=== PATIENT | female | born 1985 | race Caucasian/White ===

== ENCOUNTER → 2016-08-12 | Outpatient (CLI) | payer BC ==
[2016-08-12 13:03] LABS: EKG EKG PERFORMED
[2016-08-12 13:19] LABS: ALT 31 U/L (9-52); AST 27 U/L (14-36); Alkaline Phosphatase 64 U/L (38-126); Anion Gap 12 mmol/L; Blood Urea Nitrogen 17 mg/dL (7-17); Calcium 9.7 mg/dL (8.4-10.2); Carbon Dioxide 29 mmol/L (22-30); Chloride 101 mmol/L (98-107); Glucose 77 mg/dL (74-99); Non-African American GFR(MDRD) >60 (>60 ml/min/1.73 sqM); Potassium 4.1 mmol/L (3.5-5.1); Sodium 142 mmol/L (137-145); Total Bilirubin 0.7 mg/dL (0.2-1.3); Total Protein 7.6 g/dL (6.3-8.2)
[2016-08-12 13:22] LABS: Basophils % (A) 1 %; CH 29.9; CHCM 34.3; Eosinophils # (A) 0.1 k/uL (0-0.7); Eosinophils % (A) 1 %; HCT 39.4 % (34.0-46.0); HDW 2.73; HGB 13.3 gm/dL (11.4-16.0); Luc # (Auto) 0.11; Luc % (Auto) 2; Lymphocytes # (A) 1.9 k/uL (1.0-4.8); Lymphocytes % (A) 42 %; MCH 29.6 pg (25.0-35.0); MCHC 33.7 g/dL (31.0-37.0); MCV 87.7 fL (80.0-100.0); Mean Platelet Volume 8.3; Monocytes # (A) 0.3 k/uL (0-1.0); Monocytes % (A) 6 %; Neutrophils # (A) 2.2 k/uL (1.3-7.7); Neutrophils % (A) 48 %; RDW 12.6 % (11.5-15.5); WBC 4.6 k/uL (3.8-10.6); WBC (Perox) 4.83
== END | disposition home or self-care (01) ==
LOC: LABPAT 12:31
PROVIDERS: ATTEND Surgery
DX: Z01.812 Encounter for preprocedural laboratory examination (principal)
CPT/HCPCS: 80053; 85025; 93005

== ENCOUNTER → 2016-08-12 | Outpatient (CLI) | payer BC ==
--- NOTE | 2016-08-12 13:21 | FL ---
GASTRIC BANDING ESOPHAGRAM CLINICAL HISTORY: Pain COMPARISON: 02/09/2010 Gastric banding esophagram was performed. The patient ingested thin liquid barium. There is mild-to- moderate delay in esophagogastric transit with narrowing identified at the site of band placement. Th e gastric banding device appears to be rotated however it is unchanged in appearance since the prior examination. No definite prolapse is identified. IMPRESSION: Delayed esophagogastric transit mild to moderate in degree with narrowing at the site of the gastric band placement.
[2016-08-12 13:56] VITALS: BP 110/79; PULSE 56; RESP 14; TEMP 98.2; BMI 26.0
--- NOTE | 2016-08-12 14:17 | P.HPBAR ---
Bariatric H&P - History & Physicial H&P Date: 08/12/16 History & Physicial: Visit/CC: band f/u Patient initial contact: Initial weight: 122.47 kg Initial weight in pounds: 270.00 Height: 5 ft 7 in Initial BMI: 42.3 Last weight: Current weight: 75.523 kg Current weight in pounds: 166.50 Current BMI: 26.0 [place] body weight (based on NIH guidelines): 61.235 kg Excess body weight loss: 76.6% The patient is a 31 year-old F who presents for Bariatric Assessment. The patient states that she has had dysphagia for approximately one week. I'm not seen her for 3 or 4 years. Patient states that she had has had no issues last 3 or 4 years. Over laceration also dysphagia. She wasn't sure if it was related to her earlobe bowel syndrome. The patient's had an esophagram performed which shows some stenosis near the LAP-BAND. There is also some rotation of the LAP-BAND without any obvious prolapse. Past Medical History Past Medical History: No Reported History History of Any Multi-Drug Resistant Organisms: None Reported Past Surgical History: Appendectomy, Bariatric Surgery, Hysterectomy, Orthopedic Surgery Additional Past Surgical History / Comment(s): 200-2003 4 laporoscoopic surgeries to Left knee d/t sports injury, 2000 Right ovarian cyst, 2001 Right oopherectomy, 2006 anal fissure repair, lap band placed 2009, 2012 appendectomy *& hysterectomy Past Anesthesia/Blood Transfusion Reactions: Postoperative Nausea & Vomiting ( PONV) Additional Past Anesthesia/Blood Transfusion Reaction / Comm: no reported blood transfusions. Smoking Status: Never smoker Past Alcohol Use History: Rare Past Drug Use History: None Reported - Past Family History Mother Family Medical History: Osteoarthritis (OA) Surgical - Exam Vital Signs Temp Pulse Resp BP 98.2 F 56 L 14 110/79 08/12/16 13:46 08/12/16 13:46 08/12/16 13:46 08/12/16 13:46 - General well developed - Abdomen Abdomen: soft, non tender Bariatric Assessment & Plan Plan: The patient LAP-BAND was empty. She had 7.5 mL removed from her band. She was ill drink water without difficulty. She will follow-up in 2 weeks. Bariatric Checklist Checklist: Plan: Checklist: EGD: 1. Hiatal hernia: 2. H. Pylori: HgbA1c: Vitamin D: Smoking: Never smoker Primary care physician referral: Ivan ([facility]) Psychiatry clearance: Cardiology clearance: Sleep study: Diet journal: VTE risk score: VTE risk level: Rehab needs at discharge:
== END | disposition home or self-care (01) ==
LOC: RADFLWHC 12:27 → BARWHC3 13:20
PROVIDERS: ATTEND Surgery
DX: Z48.815 Encounter for surgical aftercare following surgery on the digestive system (principal); R13.10 Dysphagia, unspecified; Z68.26 Body mass index [BMI] 26.0-26.9, adult; Z98.84 Bariatric surgery status; K22.2 Esophageal obstruction
CPT/HCPCS: 74220; 99203

== ENCOUNTER → 2016-08-19 | Outpatient (CLI) | payer BC ==
[2016-08-19 15:49] VITALS: BP 125/82; PULSE 57; TEMP 98.4; BMI 25.7
--- NOTE | 2016-08-19 16:09 | P.HPBAR ---
Bariatric H&P - History & Physicial H&P Date: 08/19/16 History & Physicial: Visit/CC: follow up visit Patient initial contact: Initial weight: 122.47 kg Initial weight in pounds: 270.00 Height: 5 ft 7 in Initial BMI: 42.3 Last weight: Current weight: 74.344 kg Current weight in pounds: 163.90 Current BMI: 25.7 [place] body weight (based on NIH guidelines): 61.235 kg Excess body weight loss: 78.5% The patient is a 31 year-old F who presents for Bariatric Assessment. The patient presents today due to GERD and dysphagia. Patient had complaints of dysphagia last week her LAP-BAND was emptied. Patient had an esophagram performed which showed possible prolapse of her LAP-BAND. Patient's symptoms have persisted after her LAP-BAND was emptied. She states she's had trouble solid food she has tolerated clear liquids however. Past Medical History Past Medical History: No Reported History History of Any Multi-Drug Resistant Organisms: None Reported Past Surgical History: Appendectomy, Bariatric Surgery, Hysterectomy, Orthopedic Surgery Additional Past Surgical History / Comment(s): 200-2003 4 laporoscoopic surgeries to Left knee d/t sports injury, 2000 Right ovarian cyst, 2001 Right oopherectomy, 2006 anal fissure repair, lap band placed 2009, 2012 appendectomy *& hysterectomy Past Anesthesia/Blood Transfusion Reactions: Postoperative Nausea & Vomiting ( PONV) Additional Past Anesthesia/Blood Transfusion Reaction / Comm: no reported blood transfusions. Smoking Status: Never smoker Past Alcohol Use History: Rare Past Drug Use History: None Reported - Past Family History Mother Family Medical History: Osteoarthritis (OA) Surgical - Exam Vital Signs Temp Pulse BP 98.4 F 57 L 125/82 08/19/16 15:42 08/19/16 15:42 08/19/16 15:42 - General well developed, no distress - Eyes PERRL - ENT normal pinna, normal mucosa - Neck no masses - Respiratory normal expansion - Cardiovascular Rhythm: regular - Abdomen Abdomen: soft, non tender Bariatric Assessment & Plan Plan: Gastric prolapse with dysphagia and GERD. The patient will need to have her LAP -BAND removed. I discussed with that she will potentially have weight gain after this is done. Patient wishes to have a gastric sleeve performed. I discussed through that this will need to get preauthorized. I told her that if her dysphagia and reflux symptoms worsen that she will need to have her LAP- BAND removed immediately. Patient's is tentatively scheduled for removal LAP- BAND on August 23. Bariatric Checklist Checklist: Plan: Checklist: EGD: 1. Hiatal hernia: 2. H. Pylori: HgbA1c: Vitamin D: Smoking: Never smoker Primary care physician referral: Ivan ([facility]) Psychiatry clearance: Cardiology clearance: Sleep study: Diet journal: VTE risk score: VTE risk level: Rehab needs at discharge:
== END | disposition home or self-care (01) ==
LOC: BARWHC3 15:02
PROVIDERS: ATTEND Surgery
DX: K31.89 Other diseases of stomach and duodenum (principal); R13.10 Dysphagia, unspecified; K21.9 Gastro-esophageal reflux disease without esophagitis; Z98.84 Bariatric surgery status
CPT/HCPCS: 99211

== ENCOUNTER 2016-08-23 10:15 | Day surgery (SDC) | payer BC ==
[2016-08-21 10:32] VITALS: BMI 25.3
[~2016-08-23 10:15] MED LIST: ACETAMINOPHEN TAB 500 MG TAB PO ONE; DEXAMETHASONE SOD PHOSPHATE 10 MG/ML 1 ML VIAL IV ONE; ENOXAPARIN 40 MG/0.4 ML SYRINGE SQ ONE; LACTATED RINGERS 1,000 ML IV SCH; LIDOCAINE 1% 20 ML VIAL (10MG/ML) FOR IV START INTRADERMA PRN; MIDAZOLAM 2 MG/2 ML VIAL IV PRN; SCOPOLAMINE 1.5MG/72HR PATCH TRANSDERM ONE; ceFAZolin 2 GM in SODIUM CHLORIDE 0.9% 100 ML IVPB ONE
[2016-08-23] MEDS: ONDANSETRON 4 MG/2 ML VIAL IVP ONE ×2 (10:49→13:37)
--- NOTE | 2016-08-23 11:19 | P.GSHP ---
History of Present Illness H&P Date: 08/23/16 Chief Complaint: Dysphagia secondary gastric prolapse This is a 31-year-old female who presents today for laparoscopic removal of LAP- BAND system. Patient has had dysphagia related to a gastric prolapse. Her LAP- BAND was emptied over a week ago. Patient still has complaints of dysphagia. Patient is requesting have her LAP-BAND removed. She'll attempt to obtain insurance authorization for release gastric sleeve postoperatively. The patient has persistent dysphagia with her LAP-BAND emptied which has required her to have the band removed today. Past Medical History Past Medical History: No Reported History Additional Past Medical History / Comment(s): has gastric prolapse, IBS History of Any Multi-Drug Resistant Organisms: None Reported Past Surgical History: Appendectomy, Bariatric Surgery, Hysterectomy, Orthopedic Surgery Additional Past Surgical History / Comment(s): 4 arthroscopic surgeries to Left knee d/t sports injury, 2000 Right ovarian cyst, 2001 Right oopherectomy, 2006 anal fissure repair, lap band placed 2009 Past Anesthesia/Blood Transfusion Reactions: Motion Sickness, Postoperative Nausea & Vomiting (PONV) Additional Past Anesthesia/Blood Transfusion Reaction / Comment(s): no reported blood transfusions. Past Psychological History: Anxiety Smoking Status: Never smoker Past Alcohol Use History: Rare Past Drug Use History: None Reported - Past Family History Mother Family Medical History: Osteoarthritis (OA) Medications and Allergies Home Medications Medication Instructions Recorded Confirmed Type HYDROcodone/APAP 5-325MG [[place] 1 - 2 tab PO Q6HR PRN 08/21/16 08/23/16 History 5-325] Allergies Allergy/AdvReac Type Severity Reaction Status Date / Time nickel Allergy Rash/Hives Verified 08/21/16 10:27 prochlorperazine AdvReac Hallucinati Verified 08/21/16 09:49 [From Compazine] ons bee venom Allergy Anaphylaxis Uncoded 08/21/16 09:49 Surgical - Exam Vital Signs Temp Pulse Resp BP Pulse Ox 98 F 63 16 123/86 100 08/23/16 10:31 08/23/16 10:31 08/23/16 10:31 08/23/16 10:31 08/23/16 10:31 - General well developed, well nourished - Eyes PERRL - ENT normal pinna - Neck no masses - Respiratory normal expansion - Cardiovascular Rhythm: regular - Abdomen Abdomen: soft, non tender Assessment and Plan Plan: Chronic dysphagia secondary to gastric prolapse. Patient will undergo laparoscopic removal of LAP-BAND system today.
[2016-08-23] MEDS ORDERED: ONDANSETRON 4 MG/2 ML VIAL ONE (11:39)
[2016-08-23] MEDS ORDERED: KETOROLAC 30 MG/ML 1 ML VIAL ONE (11:39)
[2016-08-23] MEDS ORDERED: NEOSTIGMINE 1 MG/ML 10 ML VIAL ONE (11:39)
[2016-08-23] MEDS ORDERED: MIDAZOLAM 2 MG/2 ML VIAL ONE (11:39)
[2016-08-23] MEDS ORDERED: ePHEDrine 50 MG/ML 1 ML AMP ONE (11:39)
[2016-08-23] MEDS ORDERED: ROCURONIUM BROMIDE 10 MG/ML 10 ML VIAL IV ONE (11:39)
[2016-08-23] MEDS ORDERED: GLYCOPYRROLATE 0.2 MG/ML 2 ML VIAL ONE (11:39)
[2016-08-23] MEDS ORDERED: fentaNYL (PF) 50 MCG/ML 2 ML AMP ONE (11:39)
[2016-08-23] MEDS ORDERED: PROPOFOL 10 MG/ML 20 ML VIAL IV ONE (11:39)
[2016-08-23] MEDS ORDERED: BUPIVACAIN-EPI 0.25%-1:200,000 30 ML VIAL SQ ONE (12:09)
[2016-08-23] MEDS ORDERED: LACTATED RINGERS 1,000 ML IV ONE (12:20)
--- NOTE | 2016-08-23 12:53 | P.OP ---
Date of Procedure: 08/23/16 Preoperative Diagnosis: Dysphagia Gastric prolapse of LAP-BAND Postoperative Diagnosis: Dysphagia Gastric prolapse of LAP-BAND Procedure(s) Performed: Laparoscopic lysis of adhesion Laparoscopic removal of LAP-BAND and port Anesthesia: NIKKI Surgeon: Rafael Washington Estimated Blood Loss (ml): 10 Pathology: none sent Condition: stable Disposition: PACU Description of Procedure: The patient's placed on the operating room table in the supine position. She received general anesthesia. She was then placed in dorsal lithotomy position. Her abdomen was prepped and draped usual sterile fashion. The skin incision sites were anesthetized 1% local Xylocaine. Using 11 blade the skin was incised Regi port site and using blunt and sharp dissection and cautery the LAP-BAND port was dissected free from some taste tissues. Next using a 5 mm trocar under direct visualization. His entered and the abdomen was was then insufflated. After adequate insufflation the laparoscope placed back in [place] cavity. Next a 5 mm trocar the right lateral and left lateral position. The initial 5 mm trocar was exchanged for a 15 mm trocar. And then another 5 mm trocar was placed in the left. Local area. There were adhesions holding the liver up. The adhesions to the anterior abdominal wall were then lysed using sharp dissection and electrocautery and the Harmonic scissors. The LAP-BAND tubing was dissected out of the omentum. This was performed using left cautery. The lap band buckle was then dissected free using left cautery the LAP -BAND buckle was then cut and then removed from the patient. Regi device was then withdrawn from around stomach. There is known to any injury to the stomach. The LAP-BAND device and brought out through the 15 mm trocar site. The abdomen was irrigated there is no bleeding seen. The trochars withdrawn. The 15 mm trocar site was closed with 0 Vicryl suture. The skin was closed interrupted 3-0 Monocryl suture. Dermabond was applied. Patient top she will was sent to recovery in stable condition.
[2016-08-23 13:06] VITALS: TEMP 97.3
[2016-08-23 13:19] VITALS: RESP 16
[2016-08-23] MEDS: HYDROmorphone 1 MG/ML 1 ML SYRINGE IVP PRN ×2 (13:25→13:37)
[2016-08-23] MEDS ORDERED: HYDROcodone/APAP 7.5-325MG 1 EACH TAB PO ONE (14:54)
[2016-08-23 15:26] VITALS: BP 101/76; PULSE 76
== END 2016-08-23 15:37 | disposition home or self-care (01) ==
LOC: OR 10:15
PROVIDERS: ATTEND Surgery
DX: Z45.89 Encounter for adjustment and management of other implanted devices (principal); K66.0 Peritoneal adhesions (postprocedural) (postinfection); R13.19 Other dysphagia; K31.89 Other diseases of stomach and duodenum; Z91.030 Bee allergy status; Z88.8 Allergy status to other drugs, medicaments and biological substances; Z91.09 Other allergy status, other than to drugs and biological substances
CPT/HCPCS: 43774; J2250; J1100; J2710; J0690; J2405; J1650; J3010; J1885; J1170; J2704

== ENCOUNTER → 2016-09-09 | Outpatient (CLI) | payer BC ==
[2016-09-09 16:13] VITALS: BP 111/66; PULSE 58; TEMP 97.9
--- NOTE | 2016-09-09 16:53 | P.HPBAR ---
Bariatric H&P - History & Physicial H&P Date: 09/09/16 History & Physicial: Visit/CC: post op visit Patient initial contact: Initial weight: 122.47 kg Initial weight in pounds: 270.00 Height: Initial BMI: Last weight: Current weight: Current weight in pounds: Current BMI: [place] body weight (based on NIH guidelines): Excess body weight loss: The patient is a 31 year-old F who presents for Bariatric Assessment. Patient presents today for follow-up. She had her LAP-BAND removed in 2 weeks ago due to dysphagia and gastric prolapse. Patient is doing fairly well. She has some complaints of swelling and discomfort at her old LAP-BAND port site. Past Medical History Past Medical History: No Reported History Additional Past Medical History / Comment(s): has gastric prolapse, IBS History of Any Multi-Drug Resistant Organisms: None Reported Past Surgical History: Appendectomy, Bariatric Surgery, Hysterectomy, Orthopedic Surgery Additional Past Surgical History / Comment(s): 4 arthroscopic surgeries to Left knee d/t sports injury, 2000 Right ovarian cyst, 2001 Right oopherectomy, 2006 anal fissure repair, lap band placed 2009 Past Anesthesia/Blood Transfusion Reactions: Motion Sickness, Postoperative Nausea & Vomiting (PONV) Additional Past Anesthesia/Blood Transfusion Reaction / Comm: no reported blood transfusions. Past Psychological History: Anxiety Smoking Status: Never smoker Past Alcohol Use History: Rare Past Drug Use History: None Reported - Past Family History Mother Family Medical History: Osteoarthritis (OA) Surgical - Exam Vital Signs Temp Pulse BP 97.9 F 58 L 111/66 09/09/16 16:05 09/09/16 16:05 09/09/16 16:05 - General well developed, no distress - Eyes PERRL - ENT normal pinna - Respiratory normal expansion - Abdomen There is evidence of a small hematoma at her LAP-BAND port site Abdomen: soft Bariatric Assessment & Plan Plan: Status post removal of LAP-BAND system. Patient had her LAP-BAND port site aspirated. A small amount of bloody fluid was removed. She'll follow-up in 8 weeks for recheck. Bariatric Checklist Checklist: Plan: Checklist: EGD: 1. Hiatal hernia: 2. H. Pylori: HgbA1c: Vitamin D: Smoking: Never smoker Primary care physician referral: Ivan ([facility]) Psychiatry clearance: Cardiology clearance: Sleep study: Diet journal: VTE risk score: VTE risk level: Rehab needs at discharge:
== END | disposition home or self-care (01) ==
LOC: BARWHC3 14:48
PROVIDERS: ATTEND Surgery
DX: Z48.815 Encounter for surgical aftercare following surgery on the digestive system (principal); Z98.84 Bariatric surgery status
CPT/HCPCS: 99211

== ENCOUNTER → 2016-10-28 | Outpatient (CLI) | payer BC ==
[2016-10-28 13:21] VITALS: BMI 29.5
[2016-10-28 14:26] VITALS: BP 110/70; PULSE 88; TEMP 98.2
--- NOTE | 2016-10-28 17:01 | P.HPBAR ---
Bariatric H&P - History & Physicial H&P Date: 10/28/16 History & Physicial: Visit/CC: preop visit Patient initial contact: Initial weight: 122.47 kg Initial weight in pounds: 270.00 Height: 5 ft 7 in Initial BMI: 42.3 Last weight: Current weight: 85.457 kg Current weight in pounds: 188.40 Current BMI: 29.5 [place] body weight (based on NIH guidelines): 61.235 kg Excess body weight loss: 60.4% The patient is a 31 year-old F who presents for Bariatric Assessment. Patient presents for follow-up. She had her LAP-BAND removed several weeks ago due to a gastric prolapse. Patient requesting that she wished to have her LAP-BAND replaced. Patient's gained weight since her band was removed. Past Medical History Past Medical History: No Reported History Additional Past Medical History / Comment(s): has gastric prolapse, IBS History of Any Multi-Drug Resistant Organisms: None Reported Past Surgical History: Appendectomy, Bariatric Surgery, Hysterectomy, Orthopedic Surgery Additional Past Surgical History / Comment(s): 4 arthroscopic surgeries to Left knee d/t sports injury, 2000 Right ovarian cyst, 2001 Right oopherectomy, 2006 anal fissure repair, lap band placed 2009 Past Anesthesia/Blood Transfusion Reactions: Motion Sickness, Postoperative Nausea & Vomiting (PONV) Additional Past Anesthesia/Blood Transfusion Reaction / Comm: no reported blood transfusions. Past Psychological History: Anxiety Smoking Status: Never smoker Past Alcohol Use History: Rare Past Drug Use History: None Reported - Past Family History Mother Family Medical History: Osteoarthritis (OA) Surgical - Exam Vital Signs Temp Pulse BP 98.2 F 88 110/70 10/28/16 14:20 10/28/16 14:20 10/28/16 14:20 - General well developed, no distress - Eyes PERRL - ENT normal pinna, normal mucosa - Neck no masses - Cardiovascular Rhythm: regular - Abdomen Abdomen: soft, non tender Bariatric Assessment & Plan Plan: We will attempt to obtain insurance authorization for her LAP-BAND replacement. I went over the risks benefits of procedure with the patient. The patient is GERD symptoms are improved since her gastric prolapse was repaired with band removal. Bariatric Checklist Checklist: Plan: Checklist: EGD: 1. Hiatal hernia: 2. H. Pylori: HgbA1c: Vitamin D: Smoking: Never smoker Primary care physician referral: Ivan ([facility]) Psychiatry clearance: Cardiology clearance: Sleep study: Diet journal: VTE risk score: VTE risk level: Rehab needs at discharge:
== END | disposition home or self-care (01) ==
LOC: BARWHC3 09:03
PROVIDERS: ATTEND Surgery
DX: Z01.818 Encounter for other preprocedural examination (principal); Z71.3 Dietary counseling and surveillance; Z98.84 Bariatric surgery status; K21.9 Gastro-esophageal reflux disease without esophagitis; Z68.29 Body mass index [BMI] 29.0-29.9, adult
CPT/HCPCS: 97804; 99211

== ENCOUNTER 2016-11-15 13:00 | Inpatient (IN) | payer BC ==
[2016-11-22 12:01] VITALS: BMI 30.7
[2016-11-27] MEDS ORDERED: ceFAZolin 2 GM in SODIUM CHLORIDE 0.9% 100 ML IVPB ONE (05:00)
[2016-11-27] MEDS ORDERED: HYDROmorphone 1 MG/ML 1 ML SYRINGE IVP PRN (06:00)
[2016-11-27] MEDS ORDERED: MIDAZOLAM 2 MG/2 ML VIAL IV PRN (06:00)
[2016-11-27] MEDS ORDERED: DEXAMETHASONE SOD PHOSPHATE 10 MG/ML 1 ML VIAL IV ONE (06:00)
[2016-11-27] MEDS ORDERED: ONDANSETRON 4 MG/2 ML VIAL IVP ONE (06:00)
[2016-11-27] MEDS ORDERED: SCOPOLAMINE 1.5MG/72HR PATCH TRANSDERM ONE (06:00)
--- NOTE | 2016-11-27 13:15 | P.GSHP ---
History of Present Illness H&P Date: 11/27/16 Chief Complaint: History of morbid obesity, gastric prolapse This is a 31-year-old female who presents today for laparoscopic replacement of LAP-BAND system. The patient had her LAP-BAND system removed in August due to a gastric prolapse. Patient presents today for her LAP-BAND placement of LAP- BAND. She is aware the risks of surgery including injury to the stomach liver and spleen also a risk of conversion to the open procedure. - Constitutional Constitutional: Reports as per HPI Past Medical History Past Medical History: GERD/Reflux, Thyroid Disorder Additional Past Medical History / Comment(s): HX Gastric Prolapse W/ PREV LAB BAND, OCC GERD. HX KIDNEY STONES. IBS. LOW HEART RATE, HEREDITARY. PARAG 'S, GOITER, NODULES, NO TX. VARICOSE VEINS. History of Any Multi-Drug Resistant Organisms: None Reported Past Surgical History: Appendectomy, Bariatric Surgery, Hysterectomy, Orthopedic Surgery Additional Past Surgical History / Comment(s): 4 arthroscopic surgeries to Left knee d/t sports injury, 2000 Right ovarian cyst, 2001 Right oopherectomy. D&C FOR MISSED AB. 2006 anal fissure repair, lap band placed 2009 - REMOVED 08/23/16 Past Anesthesia/Blood Transfusion Reactions: Family History of Problems w/ Anesthesia, Motion Sickness, Postoperative Nausea & Vomiting (PONV) Additional Past Anesthesia/Blood Transfusion Reaction / Comment(s): No reported blood transfusions. FAMIL HX OF PONV, SLOW TO AWAKEN. Smoking Status: Never smoker - Past Family History Mother Family Medical History: Osteoarthritis (OA) Medications and Allergies Home Medications Medication Instructions Recorded Confirmed Type Multivitamins, Thera [Multivitamin 2 tab PO DAILY 11/22/16 11/22/16 History (formulary)] Allergies Allergy/AdvReac Type Severity Reaction Status Date / Time nickel Allergy Rash/Hives Verified 11/27/16 13:06 prochlorperazine AdvReac Hallucinati Verified 11/27/16 13:06 [From Compazine] ons bee venom Allergy Anaphylaxis Uncoded 11/22/16 11:35 Surgical - Exam - General well developed, no distress - Eyes PERRL - ENT normal pinna - Neck no masses - Respiratory normal expansion - Cardiovascular Rhythm: regular - Abdomen Abdomen: soft, non tender Assessment and Plan Plan: History of obesity with removal of LAP-BAND secondary to gastric prolapse. Patient will undergo replacement of LAP-BAND system today.
[2016-11-27] MEDS ORDERED: LIDOCAINE 1% 20 ML VIAL (10MG/ML) FOR IV START INTRADERMA ONE (13:20)
[2016-11-27] MEDS: LACTATED RINGERS 1,000 ML IV SCH (13:20)
[2016-11-27] MEDS ORDERED: HEPARIN SODIUM,PORCINE 5,000 UNIT/ML 1 ML VIAL SQ ONE (13:41)
[2016-11-27] MEDS ORDERED: GLYCOPYRROLATE 0.2 MG/ML 2 ML VIAL ONE (14:25)
[2016-11-27] MEDS ORDERED: PROPOFOL 10 MG/ML 20 ML VIAL IV ONE (14:25)
[2016-11-27] MEDS ORDERED: NEOSTIGMINE 1 MG/ML 10 ML VIAL ONE (14:25)
[2016-11-27] MEDS ORDERED: MIDAZOLAM 2 MG/2 ML VIAL ONE (14:25)
[2016-11-27] MEDS ORDERED: SUCCINYLCHOLINE CHLORIDE 100 MG/5 ML SYR IV ONE (14:25)
[2016-11-27] MEDS ORDERED: LABETALOL 5 MG/ML VIAL MDV ONE (14:25)
[2016-11-27] MEDS ORDERED: fentaNYL (PF) 50 MCG/ML 2 ML AMP ONE (14:25)
[2016-11-27] MEDS ORDERED: ROCURONIUM BROMIDE 10 MG/ML 10 ML VIAL IV ONE (14:25)
[2016-11-27] MEDS ORDERED: LIDOCAINE 1%-EPI 1:100,000 20 ML VIAL SQ ONE (14:53)
[2016-11-27] MEDS ORDERED: LACTATED RINGERS 1,000 ML IV ONE (15:59)
[2016-11-27] MEDS ORDERED: ONDANSETRON 4 MG/2 ML VIAL IVP PRN (16:51)
[2016-11-27] MEDS ORDERED: NALOXONE 0.4 MG/ML 1 ML VIAL IV PRN (16:51)
--- NOTE | 2016-11-27 16:51 | P.OP ---
Date of Procedure: 11/27/16 Preoperative Diagnosis: History of gastric prolapse Morbid obesity Postoperative Diagnosis: History of gastric prolapse Morbid obesity Procedure(s) Performed: Laparoscopic lysis of adhesions Laparoscopic placement of LAP-BAND system Implants: Anesthesia: ELISABETHA Surgeon: Rafael Washington Estimated Blood Loss (ml): 100 Pathology: none sent Condition: stable Disposition: PACU Indications for Procedure: Operative Findings: Description of Procedure: The patient's placed in the operating table in the supine position. She received general anesthesia. She was then placed in dorsal lithotomy position. Her abdomen was prepped and draped in usual sterile fashion. The skin was incised in the left periumbilical area and then using a 5 mm optical trocar under direct visitation the perineal cavity is entered. The abdomen was then insufflated and then after adequate insufflation the 5 mm laparoscope was placed back the pleural cavity. Next a 5 mm trocar was placed in the right and left lateral position another fibrillar trocar is placed in the epigastric position and a 15 mm trochars placed in the left epigastric position. The patient was placed in reverse Trendelenburg. The left lateral lobe liver was retracted. There adhesions in the stomach and liver. Approximately 20 was operative time used to lyse adhesions to the stomach liver. The anterior gastric wall plication was taken down with sharp dissection. Care was taken to identify and preserve the gastric wall. This point the stomach was insufflated methylene blue normal saline. There is known to any extravasation. The retro- gastric tunnel was created using a blunt grasper and then the band was placed into the peritoneal cavity and then drawn around the stomach. The anterior gastric wall plication was performed using 2-0 Ethibond suture. The stomach was then reinsufflated methylene blue normal saline. There is no evidence of extravasation. This point the abdomen was irrigated. There was no bleeding seen. The trochars withdrawn. The PEG tube for the LAP-BAND port and the brought out through the epigastric port site. The LAP-BAND port sites the PEG tube was secured to the abdominal wall using 2-0 nylon. The skin was closed interrupted 3-0 Monocryl suture. Dermabond was applied. Patient top she will and was sent to recovery in stable condition.
[2016-11-27] MEDS: 0.9% NACL WITH KCL 20 MEQ/L 1,000 ML IV SCH (18:11)
[2016-11-27] MEDS: AMPICILLIN-SULBACTAM 3 GM in SODIUM CHLORIDE 0.9% 100 ML IVPB SCH (18:15)
[2016-11-27] MEDS: KETOROLAC 30 MG/ML 1 ML VIAL IVP SCH (18:16)
[2016-11-27] MEDS: HYDROmorphone 1 MG/ML 1 ML SYRINGE IVP PRN (18:34)
[2016-11-27] MEDS: ALBUTEROL NEBULIZED 2.5 MG/3 ML INHALATION SCH (20:13)
[2016-11-28] MEDS: AMPICILLIN-SULBACTAM 3 GM in SODIUM CHLORIDE 0.9% 100 ML IVPB SCH ×2
[2016-11-28] MEDS: 0.9% NACL WITH KCL 20 MEQ/L 1,000 ML IV SCH ×2 (02:38→08:40)
[2016-11-28] MEDS: HYDROmorphone 1 MG/ML 1 ML SYRINGE IVP PRN ×2 (04:00→10:00)
[2016-11-28 07:19] LABS: Basophils % (A) 0 %; CH 29.2; CHCM 34.4; Eosinophils # (A) 0.1 k/uL (0-0.7); Eosinophils % (A) 1 %; HCT 34.4 % (34.0-46.0); HDW 2.48; HGB 12.2 gm/dL (11.4-16.0); Luc # (Auto) 0.07; Luc % (Auto) 1; Lymphocytes # (A) 1.1 k/uL (1.0-4.8); Lymphocytes % (A) 13 %; MCH 30.1 pg (25.0-35.0); MCHC 35.3 g/dL (31.0-37.0); MCV 85.1 fL (80.0-100.0); Mean Platelet Volume 7.9; Monocytes # (A) 0.5 k/uL (0-1.0); Monocytes % (A) 6 %; Neutrophils # (A) 6.6 k/uL (1.3-7.7); Neutrophils % (A) 80 %; RBC 4.04 m/uL (3.80-5.40); RDW 12.7 % (11.5-15.5); WBC 8.3 k/uL (3.8-10.6); WBC (Perox) 8.42
[2016-11-28 07:31] LABS: Anion Gap 7 mmol/L; Blood Urea Nitrogen 12 mg/dL (7-17); Calcium 8.8 mg/dL (8.4-10.2); Carbon Dioxide 25 mmol/L (22-30); Chloride 107 mmol/L (98-107); Magnesium 1.9 mg/dL (1.6-2.3); Non-African American GFR(MDRD) >60 (>60 ml/min/1.73 sqM); Phosphorous 4.2 mg/dL (2.5-4.5); Potassium 4.3 mmol/L (3.5-5.1); Sodium 139 mmol/L (137-145)
[2016-11-28] MEDS: ALBUTEROL NEBULIZED 2.5 MG/3 ML INHALATION SCH ×2 (07:37→11:23)
[2016-11-28] MEDS ORDERED: 1: MVI, ADULT NO.4 WITH VIT K 10 ML, THIAMINE 100 MG, FOLIC ACID 1 MG, POTASSIUM CHLORID IV SCH ×6 (08:00)
[2016-11-28] MEDS: KETOROLAC 30 MG/ML 1 ML VIAL IVP SCH ×3 (08:20→11:38)
[2016-11-28] MEDS: LACTATED RINGERS 1,000 ML IV SCH (08:38)
[2016-11-28] MEDS ORDERED: ENOXAPARIN 40 MG/0.4 ML SYRINGE SQ SCH (09:00)
[2016-11-28] MEDS ORDERED: PANTOPRAZOLE 40 MG/10 ML VIAL IV SCH (09:00)
[2016-11-28 09:02] VITALS: BP 107/65; PULSE 59; RESP 16; TEMP 97
--- NOTE | 2016-11-28 10:14 | FL ---
SINGLE CONTRAST UPPER GI EXAMINATION: CLINICAL HISTORY: 31-year-old female postop bariatric surgery. Patient with prior lap band placed in 2009 with recent lap band prolapse and removal. Complicated postsurgical course and with some recurr ent weight gain. Patient with replacement surgery on 11/27/2016. TECHNIQUE: Single contrast exam performed with 50 ml Omnipaque 350 contrast. Total fluoroscopy time: 57 seconds. Total images: 29. FINDINGS: Initial fluoroscopic images shows appropriate orientation of the labrum. The patient swallowed oral c ontrast without difficulty or delay. Esophageal peristalsis and motility are within normal limits. Laparoscopic banding device is noted to be in place and is appropriately positioned in proximal stoma ch, just below Gastroesophageal junction. There is good flow of contrast along the course of the la p bed. There is unusual appearance to the contrast stream as it courses along the lateral band with a pparent redundancy and small area of pooling and additional fingerlike extensions which extend both t o the right and left of the lap band. However, on the 5 minute post procedure radiograph, these colle ctions have decreased in size as compared to when the patient was actively drinking. Contrast has pro gressed into the jejunum. No postsurgical free air. IMPRESSION: 1. Appropriate orientation of the lap band. 2. Unusual appearance to the contrast stream as it traverses the lap band. There is suggestion of cici e luminal redundancy both within and around the band. Recommend review of the images. As the extensio ns of contrast have decreased on the 5 minute post procedure radiograph, leak is considered unlikely. Redundant areas of stomach are suggested. Again, clinical correlation recommended. 3. No evidence for obstruction or free air.
[2016-11-28] MEDS ORDERED: SODIUM CHLORIDE 0.9% 1,000 ML BAG ONE (11:38)
--- NOTE | 2016-11-28 12:55 | P.PN ---
Progress Note - Text The patient is feeling well. She has minimal epigastric pain. Her esophagram performed today shows no evidence of leak or obstruction. On exam her vital signs are stable. Her abdomen soft. Incision sites are clean dry and intact. Patiently discharged home today. She'll follow-up in the clinic in 2 weeks.
--- NOTE | 2016-11-28 13:02 | P.DS ---
Providers Date of admission: 11/27/16 12:31 Expected date of discharge: 11/28/16 Attending physician: Rafael Washington Consults: 11/27/16 16:51 Consult Physician Routine Consulting Provider: Jose Carrizales Reason/Comments: Medical management Do you want consulting provider notified?: Yes Primary care physician: Stated None Hospital Course: This is a 31-year-old female who underwent replacement of LAP-BAND system. Please see chart for details. Procedures: Laparoscopic placement of gastric band Patient Condition at Discharge: Good Plan - Discharge Summary New Discharge Prescriptions: New HYDROcodone/APAP [[place] Elixir 7.5-325Mg/15Ml] 15 ml PO Q4HR PRN #300 ml PRN Reason: Pain No Action Multivitamins, Thera [Multivitamin (formulary)] 2 tab PO DAILY Discharge Medication List Multivitamins, Thera [Multivitamin (formulary)] 2 tab PO DAILY 11/22/16 [History ] HYDROcodone/APAP [[place] Elixir 7.5-325Mg/15Ml] 15 ml PO Q4HR PRN #300 ml [Rx] Follow up Appointment(s)/Referral(s): [facility] [NON-STAFF] - 2 Weeks Patient Instructions/Handouts: *Surgery [facility] - Scopalamine Patch Instructions
[2016-11-28] MEDS ORDERED: HYDROcodone/APAP 15 ML SOLUTION PO ONE (13:38)
== END 2016-11-28 14:19 | disposition home or self-care (01) | DRG 621 ==
LOC: 2ORWHC 11-27 12:31 → 3SUR 11-27 16:08
PROVIDERS: ADMIT Surgery; ATTEND Surgery
PROC: 0DN64ZZ Release Stomach, Percutaneous Endoscopic Approach (ICD-10-PCS; principal; 2016-11-27 15:25)
PROC: 0DV64CZ Restriction of Stomach with Extraluminal Device, Percutaneous Endoscopic Approach (ICD-10-PCS; principal; 2016-11-27 15:25)
PROC: 0FN04ZZ Release Liver, Percutaneous Endoscopic Approach (ICD-10-PCS; principal; 2016-11-27 15:25)
DX: E66.01 Morbid (severe) obesity due to excess calories (principal); K21.9 Gastro-esophageal reflux disease without esophagitis; K58.9 Irritable bowel syndrome, unspecified; Z87.442 Personal history of urinary calculi; Z91.030 Bee allergy status; K66.0 Peritoneal adhesions (postprocedural) (postinfection)
CPT/HCPCS: 74240; 80051; 82310; 82565; 83735; 84100; 84520; 85025; 94640; 94760

== ENCOUNTER → 2016-12-16 | Outpatient (CLI) | payer BC ==
[2016-12-16 14:38] VITALS: BP 118/75; PULSE 63; RESP 15; TEMP 98.2; BMI 29.5
--- NOTE | 2016-12-16 16:38 | P.HPBAR ---
Bariatric H&P - History & Physicial H&P Date: 12/16/16 History & Physicial: Visit/CC: band fill Patient initial contact: Initial weight: 122.47 kg Initial weight in pounds: 270.00 Height: 5 ft 7 in Initial BMI: 42.3 Last weight: 188.4 Current weight: 85.502 kg Current weight in pounds: 188.50 Current BMI: 29.5 [place] body weight (based on NIH guidelines): 61.235 kg Excess body weight loss: 60.3% The patient is a 31 year-old F who presents for Bariatric Assessment. Patient presents today for lab band follow up. She denies a significant dysphagia or GERD. She's had no real abdominal pain. Past Medical History Past Medical History: GERD/Reflux, Thyroid Disorder Additional Past Medical History / Comment(s): HX Gastric Prolapse W/ PREV LAB BAND, OCC GERD. HX KIDNEY STONES. IBS. LOW HEART RATE, HEREDITARY. PARAG 'S, GOITER, NODULES, NO TX. VARICOSE VEINS. History of Any Multi-Drug Resistant Organisms: None Reported Past Surgical History: Appendectomy, Bariatric Surgery, Hysterectomy, Orthopedic Surgery Additional Past Surgical History / Comment(s): 4 arthroscopic surgeries to Left knee d/t sports injury, 2000 Right ovarian cyst, 2001 Right oopherectomy. D&C FOR MISSED AB. 2006 anal fissure repair, lap band placed 2009 - REMOVED 08/23/16 Past Anesthesia/Blood Transfusion Reactions: Family History of Problems w/ Anesthesia, Motion Sickness, Postoperative Nausea & Vomiting (PONV) Additional Past Anesthesia/Blood Transfusion Reaction / Comm: No reported blood transfusions. FAMIL HX OF PONV, SLOW TO AWAKEN. Smoking Status: Never smoker - Past Family History Mother Family Medical History: Osteoarthritis (OA) Surgical - Exam Vital Signs Temp Pulse Resp BP 98.2 F 63 15 118/75 12/16/16 14:36 12/16/16 14:36 12/16/16 14:36 12/16/16 14:36 - General well developed, no distress - Eyes PERRL - ENT normal pinna - Abdomen Abdomen: soft, non tender Bariatric Assessment & Plan Plan: A she is LAP-BAND was adjusted. 3 mL was added to the LAP-BAND. He was able to drink water without difficulty. Bariatric Checklist Checklist: Plan: Checklist: EGD: 1. Hiatal hernia: 2. H. Pylori: HgbA1c: Vitamin D: Smoking: Never smoker Primary care physician referral: Ivan ([facility]) Psychiatry clearance: Cardiology clearance: Sleep study: Diet journal: VTE risk score: VTE risk level: Rehab needs at discharge:
== END | disposition home or self-care (01) ==
LOC: BARWHC3 14:21
PROVIDERS: ATTEND Surgery
DX: Z09 Encounter for follow-up examination after completed treatment for conditions other than malignant neoplasm (principal); K21.9 Gastro-esophageal reflux disease without esophagitis; Z98.84 Bariatric surgery status
CPT/HCPCS: 97803; 99212

== ENCOUNTER → 2017-01-13 | Outpatient (CLI) | payer BC ==
--- NOTE | 2017-01-13 16:48 | P.HPBAR ---
Bariatric H&P - History & Physicial H&P Date: 01/13/17 History & Physicial: Visit/CC: Patient initial contact: Initial weight: 122.47 kg Initial weight in pounds: Height: 5 ft 7 in Initial BMI: Last weight: 188 Current weight: 133.356 kg Current weight in pounds: Current BMI: 46.0 [place] body weight (based on NIH guidelines): 61.235 kg Excess body weight loss: The patient is a 31 year-old F who presents for Bariatric Assessment. Patient has had a recently replaced LAP-BAND. She currently feels hungry. She is requesting a fill of her band. Past Medical History Past Medical History: GERD/Reflux, Thyroid Disorder Additional Past Medical History / Comment(s): HX Gastric Prolapse W/ PREV LAB BAND, OCC GERD. HX KIDNEY STONES. IBS. LOW HEART RATE, HEREDITARY. PARAG 'S, GOITER, NODULES, NO TX. VARICOSE VEINS. History of Any Multi-Drug Resistant Organisms: None Reported Past Surgical History: Appendectomy, Bariatric Surgery, Hysterectomy, Orthopedic Surgery Additional Past Surgical History / Comment(s): 4 arthroscopic surgeries to Left knee d/t sports injury, 2000 Right ovarian cyst, 2001 Right oopherectomy. D&C FOR MISSED AB. 2006 anal fissure repair, lap band placed 2009 - REMOVED 08/23/16 Past Anesthesia/Blood Transfusion Reactions: Family History of Problems w/ Anesthesia, Motion Sickness, Postoperative Nausea & Vomiting (PONV) Additional Past Anesthesia/Blood Transfusion Reaction / Comm: No reported blood transfusions. FAMIL HX OF PONV, SLOW TO AWAKEN. Smoking Status: Never smoker - Past Family History Mother Family Medical History: Osteoarthritis (OA) Surgical - Exam - General well developed, no distress - Eyes PERRL - Abdomen Abdomen: soft, non tender Bariatric Assessment & Plan Plan: Patient LAP-BAND was adjusted. She had 3 mL added to her band. She currently has 4 mL in her band. She will follow-up in 2-4 weeks for adjustment. Bariatric Checklist Checklist: Plan: Checklist: EGD: 1. Hiatal hernia: 2. H. Pylori: HgbA1c: Vitamin D: Smoking: Never smoker Primary care physician referral: Ivan ([facility]) Psychiatry clearance: Cardiology clearance: Sleep study: Diet journal: VTE risk score: VTE risk level: Rehab needs at discharge:
[2017-01-13 16:56] VITALS: BMI 30.4
[2017-01-13 17:10] VITALS: BP 116/74; PULSE 60; TEMP 98.5
== END | disposition home or self-care (01) ==
LOC: BARWHC3 15:32
PROVIDERS: ATTEND Surgery
DX: Z48.815 Encounter for surgical aftercare following surgery on the digestive system (principal); Z98.84 Bariatric surgery status; K21.9 Gastro-esophageal reflux disease without esophagitis
CPT/HCPCS: 97803; 99212

== ENCOUNTER → 2017-02-03 | Outpatient (CLI) | payer BC ==
[2017-02-03 13:57] VITALS: BP 108/67; PULSE 66; RESP 16; TEMP 97.9; BMI 30.7
--- NOTE | 2017-02-03 14:03 | P.HPBAR ---
Bariatric H&P - History & Physicial H&P Date: 02/03/17 History & Physicial: Visit/CC: band fill Patient initial contact: Initial weight: 122.47 kg Initial weight in pounds: 270.00 Height: 5 ft 7 in Initial BMI: 42.3 Last weight: Current weight: 88.995 kg Current weight in pounds: 196.20 Current BMI: 30.7 [place] body weight (based on NIH guidelines): 61.235 kg Excess body weight loss: 54.6% The patient is a 31 year-old F who presents for Bariatric Assessment. The patient presents today for band follow up. She states she feels no restriction from her last fill. Past Medical History Past Medical History: GERD/Reflux, Thyroid Disorder Additional Past Medical History / Comment(s): HX Gastric Prolapse W/ PREV LAB BAND, OCC GERD. HX KIDNEY STONES. IBS. LOW HEART RATE, HEREDITARY. PARAG 'S, GOITER, NODULES, NO TX. VARICOSE VEINS. History of Any Multi-Drug Resistant Organisms: None Reported Past Surgical History: Appendectomy, Bariatric Surgery, Hysterectomy, Orthopedic Surgery Additional Past Surgical History / Comment(s): 4 arthroscopic surgeries to Left knee d/t sports injury, 2000 Right ovarian cyst, 2001 Right oopherectomy. D&C FOR MISSED AB. 2006 anal fissure repair, lap band placed 2009 - REMOVED 08/23/16 Past Anesthesia/Blood Transfusion Reactions: Family History of Problems w/ Anesthesia, Motion Sickness, Postoperative Nausea & Vomiting (PONV) Additional Past Anesthesia/Blood Transfusion Reaction / Comm: No reported blood transfusions. FAMIL HX OF PONV, SLOW TO AWAKEN. Past Psychological History: Anxiety Smoking Status: Never smoker Past Alcohol Use History: Occasional Past Drug Use History: None Reported - Past Family History Mother Family Medical History: Osteoarthritis (OA) Surgical - Exam Vital Signs Temp Pulse Resp BP 97.9 F 66 16 108/67 02/03/17 13:52 02/03/17 13:52 02/03/17 13:52 02/03/17 13:52 - General well developed, no distress - Eyes PERRL - Abdomen Abdomen: soft, non tender Bariatric Assessment & Plan Plan: The patient LAP-BAND was adjusted. She had 3 mL added to her band. She currently has 7 mL in the band. She will follow-up in one month. Bariatric Checklist Checklist: Plan: Checklist: EGD: 1. Hiatal hernia: 2. H. Pylori: HgbA1c: Vitamin D: Smoking: Never smoker Primary care physician referral: Ivan ([facility]) Psychiatry clearance: Cardiology clearance: Sleep study: Diet journal: VTE risk score: VTE risk level: Rehab needs at discharge:
== END | disposition home or self-care (01) ==
LOC: BARWHC3 13:42
PROVIDERS: ATTEND Surgery
DX: Z09 Encounter for follow-up examination after completed treatment for conditions other than malignant neoplasm (principal); K21.9 Gastro-esophageal reflux disease without esophagitis; F41.9 Anxiety disorder, unspecified; Z98.84 Bariatric surgery status
CPT/HCPCS: 99212

== ENCOUNTER → 2017-02-17 | Outpatient (CLI) | payer BC ==
[2017-02-17 13:52] VITALS: BP 113/75; PULSE 80; RESP 16; TEMP 97.5; BMI 30.9
--- NOTE | 2017-02-17 15:15 | P.HPBAR ---
Bariatric H&P - History & Physicial H&P Date: 02/17/17 History & Physicial: Visit/CC: Band Adj Patient initial contact: Initial weight: 122.47 kg Initial weight in pounds: 270.00 Height: 5 ft 7 in Initial BMI: 42.3 Last weight: 196 Current weight: 89.499 kg Current weight in pounds: 197.00 Current BMI: 30.9 [place] body weight (based on NIH guidelines): 61.235 kg Excess body weight loss: 54.0% The patient is a 32 year-old F who presents for Bariatric Assessment. The patient presents today for LAP-BAND follow-up. She currently feels hungry. She is actually gained 2 pounds since her last visit. Past Medical History Past Medical History: GERD/Reflux, Thyroid Disorder Additional Past Medical History / Comment(s): HX Gastric Prolapse W/ PREV LAB BAND, OCC GERD. HX KIDNEY STONES. IBS. LOW HEART RATE, HEREDITARY. PARAG 'S, GOITER, NODULES, NO TX. VARICOSE VEINS. History of Any Multi-Drug Resistant Organisms: None Reported Past Surgical History: Appendectomy, Bariatric Surgery, Hysterectomy, Orthopedic Surgery Additional Past Surgical History / Comment(s): 4 arthroscopic surgeries to Left knee d/t sports injury, 2000 Right ovarian cyst, 2001 Right oopherectomy. D&C FOR MISSED AB. 2006 anal fissure repair, lap band placed 2009 - REMOVED 08/23/16 Past Anesthesia/Blood Transfusion Reactions: Family History of Problems w/ Anesthesia, Motion Sickness, Postoperative Nausea & Vomiting (PONV) Additional Past Anesthesia/Blood Transfusion Reaction / Comm: No reported blood transfusions. FAMIL HX OF PONV, SLOW TO AWAKEN. Past Psychological History: Anxiety Smoking Status: Never smoker Past Alcohol Use History: Occasional Past Drug Use History: None Reported - Past Family History Mother Family Medical History: Osteoarthritis (OA) Surgical - Exam Vital Signs Temp Pulse Resp BP 97.5 F L 80 16 113/75 02/17/17 13:49 02/17/17 13:49 02/17/17 13:49 02/17/17 13:49 - General well developed, no distress - Eyes PERRL - ENT normal pinna - Neck no masses - Respiratory normal expansion - Abdomen Abdomen: soft, non tender Bariatric Assessment & Plan Plan: The patient's lap band was adjusted. She had 1 mL added to her band. She currently is 8 mL in the band. She'll follow-up in one month. Bariatric Checklist Checklist: Plan: Checklist: EGD: 1. Hiatal hernia: 2. H. Pylori: HgbA1c: Vitamin D: Smoking: Never smoker Primary care physician referral: Ivan ([facility]) Psychiatry clearance: Cardiology clearance: Sleep study: Diet journal: VTE risk score: VTE risk level: Rehab needs at discharge:
== END | disposition home or self-care (01) ==
LOC: BARWHC3 13:31
PROVIDERS: ATTEND Surgery
DX: Z48.815 Encounter for surgical aftercare following surgery on the digestive system (principal); Z98.84 Bariatric surgery status
CPT/HCPCS: 99212

== ENCOUNTER → 2017-04-14 | Outpatient (CLI) | payer BC ==
[2017-04-14 14:37] VITALS: BP 118/81; PULSE 67; RESP 15; TEMP 99.7; BMI 31.5
--- NOTE | 2017-04-14 15:51 | P.HPBAR ---
Bariatric H&P - History & Physicial H&P Date: 04/14/17 History & Physicial: Visit/CC: band fill Patient initial contact: Initial weight: 122.47 kg Initial weight in pounds: 270.00 Height: 5 ft 7 in Initial BMI: 42.3 Last weight: 203 Current weight: 91.263 kg Current weight in pounds: 201.20 Current BMI: 31.5 [place] body weight (based on NIH guidelines): 61.235 kg Excess body weight loss: 50.9% The patient is a 32 year-old F who presents for Bariatric Assessment. Patient presents today for her LAP-BAND follow-up. She feels no significant restriction. She is requesting a fill. Past Medical History Past Medical History: GERD/Reflux, Thyroid Disorder Additional Past Medical History / Comment(s): HX Gastric Prolapse W/ PREV LAB BAND, OCC GERD. HX KIDNEY STONES. IBS. LOW HEART RATE, HEREDITARY. PARAG 'S, GOITER, NODULES, NO TX. VARICOSE VEINS. History of Any Multi-Drug Resistant Organisms: None Reported Past Surgical History: Appendectomy, Bariatric Surgery, Hysterectomy, Orthopedic Surgery Additional Past Surgical History / Comment(s): 4 arthroscopic surgeries to Left knee d/t sports injury, 2000 Right ovarian cyst, 2001 Right oopherectomy. D&C FOR MISSED AB. 2006 anal fissure repair, lap band placed 2009 - REMOVED 08/23/16 Past Anesthesia/Blood Transfusion Reactions: Family History of Problems w/ Anesthesia, Motion Sickness, Postoperative Nausea & Vomiting (PONV) Additional Past Anesthesia/Blood Transfusion Reaction / Comm: No reported blood transfusions. FAMIL HX OF PONV, SLOW TO AWAKEN. Past Psychological History: Anxiety Smoking Status: Never smoker Past Alcohol Use History: Occasional Past Drug Use History: None Reported - Past Family History Mother Family Medical History: Osteoarthritis (OA) Surgical - Exam Vital Signs Temp Pulse Resp BP 99.7 F H 67 15 118/81 04/14/17 14:32 04/14/17 14:32 04/14/17 14:32 04/14/17 14:32 - General well developed, no distress - Eyes PERRL - Abdomen Abdomen: soft, non tender Bariatric Assessment & Plan Plan: Patient's lap band was adjusted.. 0.2 mL was added to her band. She'll follow- up in 4 weeks. She currently has 9.2 mL in the band. Bariatric Checklist Checklist: Plan: Checklist: EGD: 1. Hiatal hernia: 2. H. Pylori: HgbA1c: Vitamin D: Smoking: Never smoker Primary care physician referral: Ivan ([facility]) Psychiatry clearance: Cardiology clearance: Sleep study: Diet journal: VTE risk score: VTE risk level: Rehab needs at discharge:
== END | disposition home or self-care (01) ==
LOC: BARWHC3 14:22
PROVIDERS: ATTEND Surgery
DX: Z48.815 Encounter for surgical aftercare following surgery on the digestive system (principal); Z98.84 Bariatric surgery status
CPT/HCPCS: 99212

== ENCOUNTER → 2017-05-26 | Outpatient (CLI) | payer BC ==
[2017-05-26 16:17] VITALS: BP 123/71; PULSE 75; RESP 16; TEMP 98; BMI 32.9
--- NOTE | 2017-05-26 17:12 | P.HPBAR ---
Bariatric H&P - History & Physicial H&P Date: 05/26/17 History & Physicial: Visit/CC: band adj Patient initial contact: Initial weight: 122.47 kg Initial weight in pounds: 270.00 Height: 5 ft 7 in Initial BMI: 42.3 Last weight: Current weight: 95.368 kg Current weight in pounds: 210.00 Current BMI: 32.9 [place] body weight (based on NIH guidelines): 61.235 kg Excess body weight loss: 44.4% The patient is a 32 year-old F who presents for Bariatric Assessment. Patient presents today for lap band fill. She has gained approximately 9 pounds since her last visit. She states that she feels her restriction is minimal. Past Medical History Past Medical History: GERD/Reflux, Thyroid Disorder Additional Past Medical History / Comment(s): HX Gastric Prolapse W/ PREV LAB BAND, OCC GERD. HX KIDNEY STONES. IBS. LOW HEART RATE, HEREDITARY. PARAG 'S, GOITER, NODULES, NO TX. VARICOSE VEINS. History of Any Multi-Drug Resistant Organisms: None Reported Past Surgical History: Appendectomy, Bariatric Surgery, Hysterectomy, Orthopedic Surgery Additional Past Surgical History / Comment(s): 4 arthroscopic surgeries to Left knee d/t sports injury, 2000 Right ovarian cyst, 2001 Right oopherectomy. D&C FOR MISSED AB. 2006 anal fissure repair, lap band placed 2009 - REMOVED 08/23/16 Past Anesthesia/Blood Transfusion Reactions: Family History of Problems w/ Anesthesia, Motion Sickness, Postoperative Nausea & Vomiting (PONV) Additional Past Anesthesia/Blood Transfusion Reaction / Comm: No reported blood transfusions. FAMIL HX OF PONV, SLOW TO AWAKEN. Past Psychological History: Anxiety Smoking Status: Never smoker Past Alcohol Use History: Occasional Past Drug Use History: None Reported - Past Family History Mother Family Medical History: Osteoarthritis (OA) Surgical - Exam Vital Signs Temp Pulse Resp BP 98.0 F 75 16 123/71 05/26/17 15:58 05/26/17 15:58 05/26/17 15:58 05/26/17 15:58 - General well developed, no distress - Abdomen Abdomen: soft, non tender Bariatric Assessment & Plan Plan: The patient's lap band was adjusted. Initially only 3 mL is found the band. Patient LAP-BAND was emptied and 8 mL was added to her band. Patient will follow-up in one month for follow-up. Bariatric Checklist Checklist: Plan: Checklist: EGD: 1. Hiatal hernia: 2. H. Pylori: HgbA1c: Vitamin D: Smoking: Never smoker Primary care physician referral: Ivan ([facility]) Psychiatry clearance: Cardiology clearance: Sleep study: Diet journal: VTE risk score: VTE risk level: Rehab needs at discharge:
--- NOTE | 2017-05-26 17:25 | FL ---
EXAMINATION TYPE: FL barium swallow DATE OF EXAM: 05/26/2017 CLINICAL HISTORY: Dysphasia TECHNIQUE: A double contrast esophagram is performed utilizing air and barium. A total of 24 second s of fluoroscopic time was utilized during procedure. COMPARISON: None FINDINGS: The esophagus shows normal motility and emptying into the stomach. No evidence of hiatal h ernia or stricture noted. No significant gastroesophageal reflux was seen during real time performanc e of this study. Lap band appear to be in normal orientation IMPRESSION: No significant abnormality is seen to account for patient's symptoms.
== END | disposition home or self-care (01) ==
LOC: BARWHC3 14:42
PROVIDERS: ATTEND Surgery
DX: Z09 Encounter for follow-up examination after completed treatment for conditions other than malignant neoplasm (principal); K21.9 Gastro-esophageal reflux disease without esophagitis; F41.9 Anxiety disorder, unspecified; R13.10 Dysphagia, unspecified; Z98.84 Bariatric surgery status
CPT/HCPCS: 74220; 99212

== ENCOUNTER → 2017-06-02 | Outpatient (CLI) | payer BC ==
[2017-06-02 15:25] VITALS: BP 113/76; PULSE 76; TEMP 98; BMI 32.8
--- NOTE | 2017-07-18 09:10 | P.HPBAR ---
Bariatric H&P - History & Physicial H&P Date: 06/02/17 History & Physicial: Visit/CC: Patient initial contact: Initial weight: 122.47 kg Initial weight in pounds: 270.00 Height: 5 ft 7 in Initial BMI: 42.3 Last weight: Current weight: 95.164 kg Current weight in pounds: 209.80 Current BMI: 32.8 [place] body weight (based on NIH guidelines): 61.235 kg Excess body weight loss: 44.5% The patient is a 32 year-old F who presents for Bariatric Assessment. She presents today for lab band follow up. She has complaints of hunger. She states she feels no restriction. Past Medical History Past Medical History: GERD/Reflux, Thyroid Disorder Additional Past Medical History / Comment(s): HX Gastric Prolapse W/ PREV LAB BAND, OCC GERD. HX KIDNEY STONES. IBS. LOW HEART RATE, HEREDITARY. PARAG 'S, GOITER, NODULES, NO TX. VARICOSE VEINS. History of Any Multi-Drug Resistant Organisms: None Reported Past Surgical History: Appendectomy, Bariatric Surgery, Hysterectomy, Orthopedic Surgery Additional Past Surgical History / Comment(s): 4 arthroscopic surgeries to Left knee d/t sports injury, 2000 Right ovarian cyst, 2001 Right oopherectomy. D&C FOR MISSED AB. 2006 anal fissure repair, lap band placed 2009 - REMOVED 08/23/16 Past Anesthesia/Blood Transfusion Reactions: Family History of Problems w/ Anesthesia, Motion Sickness, Postoperative Nausea & Vomiting (PONV) Additional Past Anesthesia/Blood Transfusion Reaction / Comm: No reported blood transfusions. FAMIL HX OF PONV, SLOW TO AWAKEN. Past Psychological History: Anxiety Smoking Status: Never smoker Past Alcohol Use History: Occasional Past Drug Use History: None Reported - Past Family History Mother Family Medical History: Osteoarthritis (OA) Surgical - Exam Vital Signs Temp Pulse BP 98 F 76 113/76 06/02/17 15:18 06/02/17 15:18 06/02/17 15:18 - General well developed, well nourished - Eyes PERRL - ENT normal pinna, normal nares - Neck no masses - Respiratory normal expansion - Cardiovascular Rhythm: regular - Abdomen Abdomen: soft, non tender Bariatric Assessment & Plan Plan: The patient's lap band was adjusted. She appears to have a leaking port. She had 6 mL last week in her band today she has approximate 3 mL. The patient was given the option of replacement of her LAP-BAND port were conversion sleeve gastrectomy. Patient will think about which surgery she wished to proceed with. She'll contact us tomorrow. Bariatric Checklist Checklist: Plan: Checklist: EGD: 1. Hiatal hernia: 2. H. Pylori: HgbA1c: Vitamin D: Smoking: Never smoker Primary care physician referral: Ivan ([place] [facility]) Psychiatry clearance: Cardiology clearance: Sleep study: Diet journal: VTE risk score: VTE risk level: Rehab needs at discharge:
== END | disposition home or self-care (01) ==
LOC: BARWHC3 14:37
PROVIDERS: ATTEND Surgery
DX: Z48.815 Encounter for surgical aftercare following surgery on the digestive system (principal); Z98.84 Bariatric surgery status
CPT/HCPCS: 99212

== ENCOUNTER → 2017-06-09 | Outpatient (CLI) | payer BC ==
--- NOTE | 2017-06-09 16:19 | P.HPBAR ---
Bariatric H&P - History & Physicial H&P Date: 06/09/17 History & Physicial: Visit/CC: Patient initial contact: Initial weight: 122.47 kg Initial weight in pounds: Height: Initial BMI: Last weight: Current weight: Current weight in pounds: Current BMI: [place] body weight (based on NIH guidelines): Excess body weight loss: The patient is a 32 year-old F who presents for Bariatric Assessment. The patient presents today for lab band follow. Patient has a leaking LAP-BAND port. Patient versus to convert to sleeve gastrectomy. Past Medical History Past Medical History: GERD/Reflux, Thyroid Disorder Additional Past Medical History / Comment(s): HX Gastric Prolapse W/ PREV LAB BAND, OCC GERD. HX KIDNEY STONES. IBS. LOW HEART RATE, HEREDITARY. PARAG 'S, GOITER, NODULES, NO TX. VARICOSE VEINS. History of Any Multi-Drug Resistant Organisms: None Reported Past Surgical History: Appendectomy, Bariatric Surgery, Hysterectomy, Orthopedic Surgery Additional Past Surgical History / Comment(s): 4 arthroscopic surgeries to Left knee d/t sports injury, 2000 Right ovarian cyst, 2001 Right oopherectomy. D&C FOR MISSED AB. 2007 anal fissure repair, lap band placed 2009 - REMOVED 08/23/16 Past Anesthesia/Blood Transfusion Reactions: Family History of Problems w/ Anesthesia, Motion Sickness, Postoperative Nausea & Vomiting (PONV) Additional Past Anesthesia/Blood Transfusion Reaction / Comm: No reported blood transfusions. FAMIL HX OF PONV, SLOW TO AWAKEN. Smoking Status: Never smoker - Past Family History Mother Family Medical History: Osteoarthritis (OA) Bariatric Checklist Checklist: Plan: Checklist: EGD: 1. Hiatal hernia: 2. H. Pylori: HgbA1c: Vitamin D: Smoking: Never smoker Primary care physician referral: Ivan ([place] [facility]) Psychiatry clearance: Cardiology clearance: Sleep study: Diet journal: VTE risk score: VTE risk level: Rehab needs at discharge:
== END | disposition home or self-care (01) ==
LOC: CANPRECLI → LABPAT 15:26
PROVIDERS: ATTEND Surgery
DX: Z53.9 Procedure and treatment not carried out, unspecified reason (principal)

== ENCOUNTER → 2017-06-30 | Outpatient (CLI) | payer BC ==
[2017-06-30 15:02] VITALS: BMI 30.4
--- NOTE | 2017-06-30 16:32 | P.HPBAR ---
Bariatric H&P - History & Physicial H&P Date: 06/30/17 History & Physicial: Visit/CC: Patient initial contact: Initial weight: 122.47 kg Initial weight in pounds: Height: 5 ft 7 in Initial BMI: Last weight: Current weight: 87.997 kg Current weight in pounds: Current BMI: 30.4 [place] body weight (based on NIH guidelines): 61.235 kg Excess body weight loss: The patient is a 32 year-old F who presents for Bariatric Assessment. The patient is postoperative from sleeve gastrectomy. She is approximately 1 week out from surgery. She has minimal complaint of pain. Past Medical History Past Medical History: GERD/Reflux, Thyroid Disorder Additional Past Medical History / Comment(s): HX Gastric Prolapse W/ PREV LAB BAND, HX KIDNEY STONES. IBS. LOW HEART RATE, seizures as child from fever, PARAG'S, GOITER, NODULES, hx hiatal hernia History of Any Multi-Drug Resistant Organisms: None Reported Past Surgical History: Appendectomy, Bariatric Surgery, Hysterectomy, Orthopedic Surgery Additional Past Surgical History / Comment(s): 4 arthroscopic surgeries to Left knee d/t sports injury, Right ovarian cyst, Right oopherectomy. D&C x2, anal fissure repair, lap band placed 2009 - REMOVED 08/23/16, lap band reinserted 2016 Past Anesthesia/Blood Transfusion Reactions: Family History of Problems w/ Anesthesia, Postoperative Nausea & Vomiting (PONV) Additional Past Anesthesia/Blood Transfusion Reaction / Comm: FAMILY HX OF PONV , SLOW TO AWAKEN. occ diff urination post op Smoking Status: Never smoker - Past Family History Mother Family Medical History: No Reported History Surgical - Exam - General well developed - Eyes PERRL - ENT normal pinna - Neck no masses - Respiratory normal expansion - Cardiovascular Rhythm: regular - Abdomen Abdomen: soft, non tender Bariatric Assessment & Plan Plan: Status post sleeve gastrectomy. Patient did quite well. She'll follow-up in 2 weeks. Bariatric Checklist Checklist: Plan: Checklist: EGD: 1. Hiatal hernia: 2. H. Pylori: HgbA1c: Vitamin D: Smoking: Never smoker Primary care physician referral: Ivan ([facility]) Psychiatry clearance: Cardiology clearance: Sleep study: Diet journal: VTE risk score: VTE risk level: Rehab needs at discharge:
[2017-07-03 16:57] VITALS: BP 113/68; PULSE 89; RESP 15; TEMP 98.2
== END | disposition home or self-care (01) ==
LOC: BARWHC3 14:13
PROVIDERS: ATTEND Surgery
DX: Z48.815 Encounter for surgical aftercare following surgery on the digestive system (principal); G89.28 Other chronic postprocedural pain; K95.89 Other complications of other bariatric procedure; K21.9 Gastro-esophageal reflux disease without esophagitis; E07.9 Disorder of thyroid, unspecified; Z87.19 Personal history of other diseases of the digestive system; Z90.710 Acquired absence of both cervix and uterus; Z98.84 Bariatric surgery status; Z98.890 Other specified postprocedural states
CPT/HCPCS: 97803; 99211

== ENCOUNTER → 2017-07-02 | Outpatient (CLI) | payer BC ==
[2017-07-02 13:01] LABS: HGB 12.8 gm/dL (11.4-16.0); MCH 28.1 pg (25.0-35.0); MCHC 31.3 g/dL (31.0-37.0); Mean Platelet Volume 7.8; RBC 4.55 m/uL (3.80-5.40); RDW 12.3 % (11.5-15.5); WBC 11.9 k/uL (3.8-10.6)
[2017-07-02 13:03] LABS: Platelet Count 334 k/uL (150-450)
[2017-07-02 13:07] LABS: ALT 27 U/L (9-52); AST 18 U/L (14-36); Albumin 4.3 g/dL (3.5-5.0); Alkaline Phosphatase 103 U/L (38-126); Anion Gap 14 mmol/L; Blood Urea Nitrogen 7 mg/dL (7-17); Calcium 9.8 mg/dL (8.4-10.2); Carbon Dioxide 29 mmol/L (22-30); Chloride 99 mmol/L (98-107); Glucose 100 mg/dL (74-99); Sodium 142 mmol/L (137-145); Total Bilirubin 0.6 mg/dL (0.2-1.3); Total Protein 7.8 g/dL (6.3-8.2)
--- NOTE | 2017-07-02 13:29 | CT ---
EXAMINATION TYPE: CT abdomen pelvis w con DATE OF EXAM: 07/02/2017 COMPARISON: 02/10/2010 HISTORY: 32-year-old female LLQ post OP Gastric sleeve 06/19/2017 with fever. Diverticulitis. TECHNIQUE: Contiguous axial scanning of the abdomen and pelvis following administration of 100 ml Omn ipaque 300 IV contrast. Delayed images through the kidneys and coronal/sagittal reconstructions perf ormed. CT DLP: 930 mGycm Automated exposure control for dose reduction was used. FINDINGS: Interval left and removal. There is a 3.0 cm lobulated fluid collection in the left mid abdominal sub cutaneous fat at the site of previous port., Axial image 35. Heart normal size without pericardial effusion. Lung bases clear with minimal strandy atelectasis at the posterior left base. Postsurgical changes of sleeve gastrectomy. Oral contrast has passed into proximal small bowel loops. No extravasated oral contrast or free air is identified. There is some mild to moderate perigastric edema especially along the lateral proximal staple line which extends adjacent to the left adrenal gl and and undersurface of segment 3 left liver lobe, for example, axial image 14 through 19. Otherwise, no focal liver lesion or biliary ductal dilatation. Gallbladder, adrenal glands, spleen, pancreas appear within normal limits. A tiny subcentimeter hypod ensity in each kidney too small for accurate CT characterization, likely cyst. No dilated small bowel. Bladder not distended. Moderate pelvic free fluid likely physiologic. Ovaries are visualized. Uterus not clearly seen and may be surgically absent. Bones: No osseous destructive process. IMPRESSION: 1. STATUS POST SLEEVE GASTRECTOMY AFTER LAP BAND REMOVAL. 2. THERE IS MILD TO MODERATE PERIGASTRIC EDEMA ALONG THE LATERAL PROXIMAL STAPLE LINE. THIS IS SUSPEC MARY BETH TO BE ON A POSTSURGICAL BASIS THERE IS NO EXTRAVASATED ORAL CONTRAST, EXTRALUMINAL AIR, OR BATSHEVA CTIVE CHANGES AT THE LEFT LUNG BASE. FOLLOW-UP INDICATED. 3. A 3 CM SEROMA CAVITY IN THE SUBCUTANEOUS FAT OF THE ANTERIOR LEFT MID ABDOMEN. ASPIRATION CAN BE C ONSIDERED IF CONCERN FOR INFECTIVE FLUID. 4. MODERATE PELVIC FREE FLUID LIKELY PHYSIOLOGIC.
== END | disposition home or self-care (01) ==
LOC: RADCTMAIN 11:55
PROVIDERS: ATTEND Surgery
DX: K91.872 Postprocedural seroma of a digestive system organ or structure following a digestive system procedure (principal); R60.0 Localized edema; Z90.3 Acquired absence of stomach [part of]
CPT/HCPCS: 80053; 85027; 74177; 36415; Q9967

== ENCOUNTER → 2017-07-02 | Outpatient (CLI) | payer BC ==
[~2017-07-02] MED LIST changes: -ACETAMINOPHEN TAB 500 MG TAB PO ONE; -DEXAMETHASONE SOD PHOSPHATE 10 MG/ML 1 ML VIAL IV ONE; -ENOXAPARIN 40 MG/0.4 ML SYRINGE SQ ONE; +HYDROmorphone 0.5 MG/0.5 ML SYRINGE IVP STA; -LACTATED RINGERS 1,000 ML IV SCH; -LIDOCAINE 1% 20 ML VIAL (10MG/ML) FOR IV START INTRADERMA PRN; -MIDAZOLAM 2 MG/2 ML VIAL IV PRN; +ONDANSETRON 4 MG/2 ML VIAL IVP STA; -SCOPOLAMINE 1.5MG/72HR PATCH TRANSDERM ONE; +SODIUM CHLORIDE 0.9% 500 ML in EMPTY BAG 1 BAG IV PRN; -ceFAZolin 2 GM in SODIUM CHLORIDE 0.9% 100 ML IVPB ONE
[2017-07-02] MEDS: LACTATED RINGERS 1,000 ML IV NR ×3 (13:40→14:41)
[2017-07-02 13:49] VITALS: RESP 16; TEMP 98.8
--- NOTE | 2017-07-02 16:39 | P.PN ---
Subjective Progress Note Date: 07/02/17 Principal diagnosis: Abdominal pain, fever The patient called nurses morning. She states she had a fever 102. She also had significant left sided abdominal pain. Patient was asked him to the hospital. She underwent computed tomography scan of the abdomen and pelvis which showed no evidence of gastric sleeve leak. There was a small seroma noted c LAP-BAND port site. Objective - Vital Signs Vital signs: Vital Signs Temp 98.8 F 07/02/17 13:43 Pulse 73 07/02/17 13:43 Resp 16 07/02/17 13:43 BP 97/65 07/02/17 13:43 Pulse Ox Intake & Output 07/01/17 07/02/17 07/02/17 18:59 06:59 18:59 Weight 87.09 kg - Constitutional General appearance: Present: cooperative - Respiratory Respiratory: bilateral: CTA - Cardiovascular Rhythm: regular - Gastrointestinal Gastrointestinal Comment(s): Abdomen soft. There is no significant tenderness. There is no rebound or guarding. There is a small seroma palpable at the port site. - Imaging and Cardiology CT scan - abdomen: report reviewed (No evidence of gastric leak.) Assessment and Plan Assessment: Abdominal pain, dehydration. Patient was given 2 L of lactated Ringer's. The patient seroma was aspirated 5 mL of serositis fluid was aspirated. The patient was given prescription for Levaquin and asked to continue increasing her oral liquids. She will follow-up with me in one week.
[2017-07-02 17:03] VITALS: BP 116/80; PULSE 74
== END | disposition home or self-care (01) ==
LOC: PROCWHC3 12:59
PROVIDERS: ATTEND Surgery
DX: E86.0 Dehydration (principal)
CPT/HCPCS: 96360; 96361; 96374; 96375; J2405; J1170

== ENCOUNTER → 2017-07-11 | Outpatient (CLI) | payer BC ==
[2017-07-11 11:03] VITALS: BP 109/69; PULSE 58; TEMP 97.6
--- NOTE | 2017-07-11 11:08 | P.HPBAR ---
Bariatric H&P - History & Physicial H&P Date: 07/11/17 History & Physicial: Visit/CC: Patient initial contact: Initial weight: 122.47 kg Initial weight in pounds: 270.00 Height: 5 ft 7 in Initial BMI: 42.3 Last weight: Current weight: 86.999 kg Current weight in pounds: 191.80 Current BMI: 30.0 [place] body weight (based on NIH guidelines): 61.235 kg Excess body weight loss: 57.9% The patient is a 32 year-old F who presents for Bariatric Assessment. The patient presents today for postoperative sleeve gastrectomy follow-up. She is doing quite well. She's had no dysphasia. She's had minimal GERD. Past Medical History Past Medical History: GERD/Reflux, Thyroid Disorder Additional Past Medical History / Comment(s): HX Gastric Prolapse W/ PREV LAB BAND, HX KIDNEY STONES. IBS. LOW HEART RATE, seizures as child from fever, PARAG'S, GOITER, NODULES, hx hiatal hernia History of Any Multi-Drug Resistant Organisms: None Reported Past Surgical History: Appendectomy, Bariatric Surgery, Hysterectomy, Orthopedic Surgery Additional Past Surgical History / Comment(s): 4 arthroscopic surgeries to Left knee d/t sports injury, Right ovarian cyst, Right oopherectomy. D&C x2, anal fissure repair, lap band placed 2009 - REMOVED 08/23/16, lap band reinserted 2016 Past Anesthesia/Blood Transfusion Reactions: Family History of Problems w/ Anesthesia, Postoperative Nausea & Vomiting (PONV) Additional Past Anesthesia/Blood Transfusion Reaction / Comm: FAMILY HX OF PONV , SLOW TO AWAKEN. occ diff urination post op Smoking Status: Never smoker - Past Family History Mother Family Medical History: No Reported History Surgical - Exam Vital Signs Temp Pulse BP 97.6 F 58 L 109/69 07/11/17 10:33 07/11/17 10:33 07/11/17 10:33 - General well developed, no distress - Eyes PERRL - ENT normal pinna - Neck no masses - Respiratory normal expansion - Cardiovascular Rhythm: regular - Abdomen Abdomen: soft, non tender Hernia: none Bariatric Assessment & Plan Plan: Status post sleeve gastrectomy. Patient's is doing well.. She'll follow-up in 2 weeks. Bariatric Checklist Checklist: Plan: Checklist: EGD: 1. Hiatal hernia: 2. H. Pylori: HgbA1c: Vitamin D: Smoking: Never smoker Primary care physician referral: Ivan ([facility]) Psychiatry clearance: Cardiology clearance: Sleep study: Diet journal: VTE risk score: VTE risk level: Rehab needs at discharge:
== END | disposition home or self-care (01) ==
LOC: BARWHC3 09:54
PROVIDERS: ATTEND Surgery
DX: Z48.815 Encounter for surgical aftercare following surgery on the digestive system (principal); K21.0 Gastro-esophageal reflux disease with esophagitis; Z98.84 Bariatric surgery status
CPT/HCPCS: 99211

== ENCOUNTER → 2017-07-21 | Outpatient (CLI) | payer BC ==
[~2017-07-21] MED LIST changes: -HYDROmorphone 0.5 MG/0.5 ML SYRINGE IVP STA; +LACTATED RINGERS 1,000 ML IV SCH; -ONDANSETRON 4 MG/2 ML VIAL IVP STA; -SODIUM CHLORIDE 0.9% 500 ML in EMPTY BAG 1 BAG IV PRN
[2017-07-21 14:48] VITALS: BMI 28.7
--- NOTE | 2017-07-21 15:10 | P.HPBAR ---
Bariatric H&P - History & Physicial H&P Date: 07/21/17 History & Physicial: Visit/CC: Patient initial contact: Initial weight: 122.47 kg Initial weight in pounds: Height: 5 ft 7 in Initial BMI: Last weight: Current weight: 83.189 kg Current weight in pounds: Current BMI: 28.7 [place] body weight (based on NIH guidelines): 61.235 kg Excess body weight loss: The patient is a 32 year-old F who presents for Bariatric Assessment. Patient presents today for lap sleeve gastrectomy follow-up. She's had some trouble with diarrhea. She feels she is dehydrated. She's had trouble maintaining her oral intake. Past Medical History Past Medical History: GERD/Reflux, Thyroid Disorder Additional Past Medical History / Comment(s): HX Gastric Prolapse W/ PREV LAB BAND, HX KIDNEY STONES. IBS. LOW HEART RATE, seizures as child from fever, PARAG'S, GOITER, NODULES, hx hiatal hernia History of Any Multi-Drug Resistant Organisms: None Reported Past Surgical History: Appendectomy, Bariatric Surgery, Hysterectomy, Orthopedic Surgery Additional Past Surgical History / Comment(s): 4 arthroscopic surgeries to Left knee d/t sports injury, Right ovarian cyst, Right oopherectomy. D&C x2, anal fissure repair, lap band placed 2009 - REMOVED 08/23/16, lap band reinserted 2016 Past Anesthesia/Blood Transfusion Reactions: Family History of Problems w/ Anesthesia, Postoperative Nausea & Vomiting (PONV) Additional Past Anesthesia/Blood Transfusion Reaction / Comm: FAMILY HX OF PONV , SLOW TO AWAKEN. occ diff urination post op Smoking Status: Never smoker - Past Family History Mother Family Medical History: No Reported History Surgical - Exam - General well developed, no distress - Eyes normal ocular movement - ENT normal pinna - Neck no masses - Respiratory normal expansion - Cardiovascular Rhythm: regular - Abdomen Abdomen: soft, non tender Bariatric Assessment & Plan Plan: Status post sleeve yesterday. Patient has had diarrhea for the last week. Patient received fluid hydration. She will receive 1000 mL of lactated Ringer' s today. She'll follow-up in 2 weeks. Bariatric Checklist Checklist: Plan: Checklist: EGD: 1. Hiatal hernia: 2. H. Pylori: HgbA1c: Vitamin D: Smoking: Never smoker Primary care physician referral: Ivan ArechigaAdin león) Psychiatry clearance: Cardiology clearance: Sleep study: Diet journal: VTE risk score: VTE risk level: Rehab needs at discharge:
[2017-07-23 11:23] VITALS: BP 112/64; PULSE 66; RESP 16; TEMP 98.4
== END | disposition home or self-care (01) ==
LOC: BARWHC3 13:52
PROVIDERS: ATTEND Surgery
DX: E86.0 Dehydration (principal)
CPT/HCPCS: 96360; 97803; 99211

== ENCOUNTER → 2017-08-04 | Outpatient (CLI) | payer BC ==
[2017-08-04 15:22] VITALS: BP 106/63; PULSE 59; TEMP 97.9; BMI 28.4
--- NOTE | 2017-08-04 16:17 | P.HPBAR ---
Bariatric H&P - History & Physicial H&P Date: 08/04/17 History & Physicial: Visit/CC: two month follow up Patient initial contact: Initial weight: 122.47 kg Initial weight in pounds: 270.00 Height: 5 ft 7 in Initial BMI: 42.3 Last weight: Current weight: 82.372 kg Current weight in pounds: 181.60 Current BMI: 28.4 [place] body weight (based on NIH guidelines): 61.235 kg Excess body weight loss: 65.4% The patient is a 32 year-old F who presents for Bariatric Assessment. Patient presents today for sleeve gastrectomy follow-up. She has some complaints of diarrhea. She also had some minimal GERD. No trouble eating. Past Medical History Past Medical History: GERD/Reflux, Thyroid Disorder Additional Past Medical History / Comment(s): HX Gastric Prolapse W/ PREV LAB BAND, HX KIDNEY STONES. IBS. LOW HEART RATE, seizures as child from fever, PARAG'S, GOITER, NODULES, hx hiatal hernia History of Any Multi-Drug Resistant Organisms: None Reported Past Surgical History: Appendectomy, Bariatric Surgery, Hysterectomy, Orthopedic Surgery Additional Past Surgical History / Comment(s): 4 arthroscopic surgeries to Left knee d/t sports injury, Right ovarian cyst, Right oopherectomy. D&C x2, anal fissure repair, lap band placed 2009 - REMOVED 08/23/16, lap band reinserted 2016 sleeve gastrectomy band removed - Past Anesthesia/Blood Transfusion Reactions: Family History of Problems w/ Anesthesia, Postoperative Nausea & Vomiting (PONV) Additional Past Anesthesia/Blood Transfusion Reaction / Comm: FAMILY HX OF PONV , SLOW TO AWAKEN. occ diff urination post op Past Psychological History: Anxiety Smoking Status: Never smoker Past Alcohol Use History: Occasional Past Drug Use History: None Reported - Past Family History Mother Family Medical History: No Reported History Surgical - Exam Vital Signs Temp Pulse BP 97.9 F 59 L 106/63 08/04/17 15:19 08/04/17 15:19 08/04/17 15:19 - General well developed, no distress - Eyes PERRL - ENT normal pinna - Neck no masses - Respiratory normal expansion - Cardiovascular Rhythm: regular - Abdomen Abdomen: soft, non tender Bariatric Assessment & Plan Plan: Status post sleeve gastrectomy. Patient is doing well. Her GERD is a minimal will be observed. Her diarrhea will be observed. She'll follow-up in one month. Bariatric Checklist Checklist: Plan: Checklist: EGD: 1. Hiatal hernia: 2. H. Pylori: HgbA1c: Vitamin D: Smoking: Never smoker Primary care physician referral: Ivan ([facility]) Psychiatry clearance: Cardiology clearance: Sleep study: Diet journal: VTE risk score: VTE risk level: Rehab needs at discharge:
== END ==
LOC: BARWHC3 14:23
PROVIDERS: ATTEND Surgery
DX: Z48.815 Encounter for surgical aftercare following surgery on the digestive system (principal); K21.9 Gastro-esophageal reflux disease without esophagitis; R19.7 Diarrhea, unspecified; Z90.710 Acquired absence of both cervix and uterus; Z98.84 Bariatric surgery status
CPT/HCPCS: 99211

== ENCOUNTER → 2017-10-20 | Outpatient (CLI) | payer BC ==
[2017-10-20 15:48] VITALS: BP 117/77; PULSE 59; RESP 16; TEMP 98; BMI 26.7
--- NOTE | 2017-10-20 16:48 | P.HPBAR ---
Bariatric H&P - History & Physicial H&P Date: 10/20/17 History & Physicial: Visit/CC: sleeve follow-up Patient initial contact: Initial weight: 122.47 kg Initial weight in pounds: 270.00 Height: 5 ft 7 in Initial BMI: 42.3 Last weight: Current weight: 77.564 kg Current weight in pounds: 171.00 Current BMI: 26.7 [place] body weight (based on NIH guidelines): 61.235 kg Excess body weight loss: 73.3% The patient is a 32 year-old F who presents for Bariatric Assessment. Patient presents today for sleeve gastrectomy follow-up. She has some complaints of nausea. Past Medical History Past Medical History: GERD/Reflux, Thyroid Disorder Additional Past Medical History / Comment(s): HX Gastric Prolapse W/ PREV LAB BAND, HX KIDNEY STONES. IBS. LOW HEART RATE, seizures as child from fever, PARAG'S, GOITER, NODULES, hx hiatal hernia History of Any Multi-Drug Resistant Organisms: None Reported Past Surgical History: Appendectomy, Bariatric Surgery, Hysterectomy, Orthopedic Surgery Additional Past Surgical History / Comment(s): 4 arthroscopic surgeries to Left knee d/t sports injury, Right ovarian cyst, Right oopherectomy. D&C x2, anal fissure repair, lap band placed 2009 - REMOVED 08/23/16, lap band reinserted 2016 sleeve gastrectomy band removed - Past Anesthesia/Blood Transfusion Reactions: Family History of Problems w/ Anesthesia, Postoperative Nausea & Vomiting (PONV) Additional Past Anesthesia/Blood Transfusion Reaction / Comm: FAMILY HX OF PONV , SLOW TO AWAKEN. occ diff urination post op Past Psychological History: Anxiety Smoking Status: Never smoker Past Alcohol Use History: Occasional Past Drug Use History: None Reported - Past Family History Mother Family Medical History: No Reported History Surgical - Exam Vital Signs Temp Pulse Resp BP 98 F 59 L 16 117/77 10/20/17 15:42 10/20/17 15:42 10/20/17 15:42 10/20/17 15:42 - General well developed, no distress - Eyes PERRL - Abdomen Abdomen: soft, non tender Bariatric Assessment & Plan Plan: The patient is doing well from her sleeve. Her nausea is minimal will be observed. She will follow-up in one month. Bariatric Checklist Checklist: Plan: Checklist: EGD: 1. Hiatal hernia: 2. H. Pylori: HgbA1c: Vitamin D: Smoking: Never smoker Primary care physician referral: Ivan ([facility]) Psychiatry clearance: Cardiology clearance: Sleep study: Diet journal: VTE risk score: VTE risk level: Rehab needs at discharge:
== END | disposition home or self-care (01) ==
LOC: BARWHC3 14:50
PROVIDERS: ATTEND Surgery
DX: Z48.815 Encounter for surgical aftercare following surgery on the digestive system (principal); K21.9 Gastro-esophageal reflux disease without esophagitis; E66.01 Morbid (severe) obesity due to excess calories; Z98.84 Bariatric surgery status; Z90.89 Acquired absence of other organs; Z90.710 Acquired absence of both cervix and uterus; Z98.890 Other specified postprocedural states; Z68.26 Body mass index [BMI] 26.0-26.9, adult
CPT/HCPCS: 97803; 99211

== ENCOUNTER → 2018-03-09 | Outpatient (CLI) | payer BC ==
--- NOTE | 2018-03-09 16:25 | CT ---
EXAMINATION TYPE: CT abdomen pelvis w con DATE OF EXAM: 03/09/2018 HISTORY: Abdominal pain, bloating and diarrhea. Gastric sleeve surgery 218. CT DLP: 537.5mGycm Automated Exposure Control for Dose Reduction was Utilized. CONTRAST: CT scan of the abdomen and pelvis is performed with IV Contrast, patient injected with 100 mL of Isov ue M300. COMPARISON: To 1418. FINDINGS: LUNG BASES: No significant abnormality is appreciated. LIVER/GB: Unremarkable. No focal hepatic lesion of cholelithiasis. PANCREAS: No significant abnormality is seen. No ductal dilatation. SPLEEN: No significant abnormality is seen. ADRENALS: No significant abnormality is seen. KIDNEYS: Punctate hypoattenuated lesions are again too small to accurately characterize. No hydroneph rosis. BOWEL: Partial gastrectomy from gastric sleeve has been performed. There is no extravasation of contr ast. The previously seen edema along the lateral proximal staple line has resolved and was likely on a postsurgical basis. No pneumoperitoneum Oral contrast does not extend into the colon and therefore there is limited evaluation of the colon. No dilated large or small bowel. No pericolonic fat strandi ng. No gross evidence of bowel wall thickening. Appendix is not visualized, however no focal right lo wer quadrant fat stranding changes are seen. LYMPH NODES: No greater than 1cm abdominal or pelvic lymph nodes are appreciated. OSSEOUS STRUCTURES: No significant abnormality is seen. OTHER: Postsurgical changes seen of the left abdominal wall anteriorly on image 26 and there is resol ution of the previously seen seroma on the prior. A scant amount of free fluid is incidentally noted. IMPRESSION: 1. No evidence of bowel obstruction or CT evidence of acute colitis. Large bowel is decompressed and there is slight limited evaluation as oral contrast has not extended into the colon. 2. Redemonstration of gastric sleeve postoperative change resolution of the previously edema around t he lateral proximal staple line.
--- NOTE | 2018-03-09 16:30 | P.HPBAR ---
Bariatric H&P - History & Physicial H&P Date: 03/09/18 History & Physicial: Visit/CC: Patient initial contact: Initial weight: 122.47 kg Initial weight in pounds: Height: Initial BMI: Last weight: Current weight: Current weight in pounds: Current BMI: [place] body weight (based on NIH guidelines): Excess body weight loss: The patient is a 33 year-old F who presents for Bariatric Assessment. Patient presents today for sleeve gastrectomy follow-up. She's not been seen in 5 months. Apparently the patient has had some trouble with some abdominal pain, nausea and diarrhea. She has been seen by a gang vibrator operator which is closer to her home in [place]. Patient states that she had an EGD with what sounds like balloon dilatation of her GE junction. She states that her diarrhea is intermittent. She states that she has complaints of abdominal pain. It abdominal pain is intermittent. Past Medical History Past Medical History: GERD/Reflux, Thyroid Disorder Additional Past Medical History / Comment(s): HX Gastric Prolapse W/ PREV LAB BAND, HX KIDNEY STONES. IBS. LOW HEART RATE, seizures as child from fever, PARAG'S, GOITER, NODULES, hx hiatal hernia History of Any Multi-Drug Resistant Organisms: None Reported Past Surgical History: Appendectomy, Bariatric Surgery, Hysterectomy, Orthopedic Surgery Additional Past Surgical History / Comment(s): 4 arthroscopic surgeries to Left knee d/t sports injury, Right ovarian cyst, Right oopherectomy. D&C x2, anal fissure repair, lap band placed 2009 - REMOVED 08/23/16, lap band reinserted 2016 sleeve gastrectomy band removed - Past Anesthesia/Blood Transfusion Reactions: Family History of Problems w/ Anesthesia, Postoperative Nausea & Vomiting (PONV) Additional Past Anesthesia/Blood Transfusion Reaction / Comm: FAMILY HX OF PONV , SLOW TO AWAKEN. occ diff urination post op Past Psychological History: Anxiety Smoking Status: Never smoker Past Alcohol Use History: Occasional Past Drug Use History: None Reported - Past Family History Mother Family Medical History: No Reported History Surgical - Exam - General well developed - Eyes PERRL - ENT normal pinna - Neck no masses - Respiratory normal expansion - Cardiovascular Rhythm: regular - Abdomen Abdomen: non tender Bariatric Assessment & Plan Plan: History of abdominal pain, nausea, diarrhea. The patient is quite emotional today in the office. She is regarding having gastric sleeve surgery. I told her that I think is reasonable have a CAT scan performed. We'll perform a CAT scan of her abdomen and pelvis. We'll also obtain her notes from her GI doctor. She'll follow-up in one week. Bariatric Checklist Checklist: Plan: Checklist: EGD: 1. Hiatal hernia: 2. H. Pylori: HgbA1c: Vitamin D: Smoking: Never smoker Primary care physician referral: Ivan ([facility]) Psychiatry clearance: Cardiology clearance: Sleep study: Diet journal: VTE risk score: VTE risk level: Rehab needs at discharge:
== END | disposition home or self-care (01) ==
LOC: RADCTMAIN 15:49
PROVIDERS: ATTEND Surgery
DX: K63.89 Other specified diseases of intestine (principal); Z98.84 Bariatric surgery status; Z88.8 Allergy status to other drugs, medicaments and biological substances
CPT/HCPCS: 74177; Q9967

== ENCOUNTER → 2018-03-09 | Outpatient (CLI) | payer BC ==
[2018-03-09 16:16] VITALS: BMI 26.2
[2018-03-10 15:02] VITALS: BP 110/82; PULSE 50; RESP 16; TEMP 98.1
== END | disposition home or self-care (01) ==
LOC: BARWHC3 14:14
PROVIDERS: ATTEND Surgery
DX: E66.01 Morbid (severe) obesity due to excess calories (principal); Z68.26 Body mass index [BMI] 26.0-26.9, adult
CPT/HCPCS: 97803; 99211

== ENCOUNTER → 2018-12-07 | Outpatient (CLI) | payer BC ==
[2018-12-07 14:27] VITALS: BP 114/77; PULSE 51; RESP 16; TEMP 98.7; BMI 26.9
--- NOTE | 2019-01-11 14:46 | P.HPBAR ---
Bariatric H&P - History & Physicial H&P Date: 12/07/18 History & Physicial: Visit/CC: Sleeve follow-up Patient initial contact: Initial weight: 122.47 kg Initial weight in pounds: 270.00 Height: 5 ft 7 in Initial BMI: 42.3 Last weight: Current weight: 78.018 kg Current weight in pounds: 172.00 Current BMI: 26.9 [place] body weight (based on NIH guidelines): 61.235 kg Excess body weight loss: 72.5% The patient is a 33 year-old F who presents for Bariatric Assessment. Patient resents today for sleeve gastrectomy follow-up. She is doing quite well. She has multiple units of GERD. Past Medical History Past Medical History: GERD/Reflux, Thyroid Disorder Additional Past Medical History / Comment(s): HX Gastric Prolapse W/ PREV LAB BAND, HX KIDNEY STONES. IBS. LOW HEART RATE, seizures as child from fever, PARAG'S, GOITER, NODULES, hx hiatal hernia History of Any Multi-Drug Resistant Organisms: None Reported Past Surgical History: Appendectomy, Bariatric Surgery, Hysterectomy, Orthopedic Surgery Additional Past Surgical History / Comment(s): 4 arthroscopic surgeries to Left knee d/t sports injury, Right ovarian cyst, Right oopherectomy. D&C x2, anal fissure repair, lap band placed 2009 - REMOVED 08/23/16, lap band reinserted 11/2016 sleeve gastrectomy band removed - Past Anesthesia/Blood Transfusion Reactions: Family History of Problems w/ Anesthesia, Postoperative Nausea & Vomiting (PONV) Additional Past Anesthesia/Blood Transfusion Reaction / Comm: FAMILY HX OF PONV, SLOW TO AWAKEN. occ diff urination post op Smoking Status: Never smoker - Past Family History Mother Family Medical History: No Reported History Surgical - Exam Vital Signs Temp Pulse Resp BP 98.7 F 51 L 16 114/77 12/07/18 14:18 12/07/18 14:18 12/07/18 14:18 12/07/18 14:18 - General well developed, well nourished, no distress - Eyes PERRL - ENT normal pinna - Neck no masses - Respiratory normal expansion - Cardiovascular Rhythm: regular - Abdomen Abdomen: soft, non tender Bariatric Assessment & Plan Plan: Status post sleeve gastrectomy. Patient still quite well. Her GERD is minimal will be observed. She'll follow-up in 3 months. Bariatric Checklist Checklist: Plan: Checklist: EGD: 1. Hiatal hernia: 2. H. Pylori: HgbA1c: Vitamin D: Smoking: Never smoker Primary care physician referral: Ivan ([facility]) Psychiatry clearance: Cardiology clearance: Sleep study: Diet journal: VTE risk score: VTE risk level: Rehab needs at discharge:
== END | disposition home or self-care (01) ==
LOC: BARWHC3 13:52
PROVIDERS: ATTEND Surgery
DX: Z48.815 Encounter for surgical aftercare following surgery on the digestive system (principal); K21.9 Gastro-esophageal reflux disease without esophagitis; Z90.3 Acquired absence of stomach [part of]; Z90.49 Acquired absence of other specified parts of digestive tract
CPT/HCPCS: 99211